=== PATIENT | female | born 1995 | race African-American/Black ===

== ENCOUNTER 2018-05-27 12:55 | Emergency (ER) | payer SELFPAY ==
--- NOTE | 2018-05-27 13:14 | PDOC ---
Attending Attestation - Resident Resident Name: Kraig Malone - HPI HPI: 05/27/18 13:43 Pt presents to the ED complaining of crampy pelvic pain similar to her chronic pelvic pain that she gets with her periods. Patient has a longstanding history of dysmenorrhea, which improved with control in the past. Denies nausea, vomiting, dysuria or fever. - Physicial Exam PE: 05/27/18 13:57 Agree with resident exam. Patient is alert and oriented and in no acute distress. Abdomen is soft, non tender, non distended without guarding or rebound. - Medical Decision Making 05/27/18 13:57 Pt presents to the ED complaining of dysuria that is similar to, but worse than , her chronic pelvic pain. Will check u a and u preg to rule out UTI or ectopic . Will check pelvic exam to evaluate for PID.
[2018-05-27] MEDS ORDERED: IBUPROFEN 600 MG TABLET (FP) PO ONE (13:26)
[2018-05-27] MEDS ORDERED: KETOROLAC TROMETHAMINE 15 MG/ML VIAL IVPUSH ONE (13:39)
[2018-05-27 13:48] VITALS: BP 127/87; PULSE 107; TEMP 98.6; BMI 31.5
--- NOTE | 2018-05-27 14:04 | PDOC ---
History of Present Illness - General Chief Complaint: Pain Stated Complaint: PELVIS PAIN Time Seen by Provider: 05/27/18 13:14 - History of Present Illness Initial Comments: 22 year old female with PMH of dysmenorrhea 05/27/18 13:20 Past History - Past Medical History Allergies/Adverse Reactions: Allergies Allergy/AdvReac Type Severity Reaction Status Date / Time bee venom protein (honey bee) Allergy Severe Swelling Verified 05/27/18 13:33 tree nut Allergy Severe Swelling Verified 05/27/18 13:30 honey Allergy Unknown Verified 05/27/18 13:33 horse dander Allergy Unknown Verified 05/27/18 13:33 pine nut Allergy Unknown Verified 05/27/18 13:33 WATER BUGS Allergy Unknown Uncoded 05/27/18 13:33 Home Medications: Ambulatory Orders Albuterol Sulfate Inhaler - [Ventolin HFA Inhaler -] 2 inh PO Q4H 05/27/18 Norgestimate-Ethinyl Estradiol [Sprintec 28 Day Tablet] 1 each PO DAILY 28 Days #1 pack 05/27/18 *DC/Admit/Observation/Transfer Diagnosis at time of Disposition: Pelvic pain - Discharge Dispostion Disposition: HOME Condition at time of disposition: Improved Decision to Admit order: No - Prescriptions Prescriptions: Norgestimate-Ethinyl Estradiol [Sprintec 28 Day Tablet] 1 each PO DAILY 28 Days #1 pack - Referrals Referrals: [facility] [Provider Group] [facility] [place] [Provider Group] - Patient Instructions Printed Discharge Instructions: DI for Endometriosis, DI for Pelvic Pain Additional Instructions: You need to have a thorough evaluation by a gyenecologist to find out what the root cause of your pain is. We believe that it could be endometriosis as we discussed or possibly due to your fibroids. Please take your control as directed and fill it at the pharmacy using the Good [facility] coupon that we helped you. Please use Motrin 600 MG every 4-6 hours as needed along with tylenol. Please return to the ED if you have any new or worsening symptoms. - Post Discharge Activity
[2018-05-27 14:10] LABS: HCG,QUALITATIVE URINE Negative
[2018-05-27] MEDS ORDERED: KETOROLAC TROMETHAMINE 15 MG/ML VIAL ONE (14:26)
[2018-05-27 14:27] LABS: URINE APPEARANCE Clear; URINE BILIRUBIN Negative (NEGATIVE); URINE COLOR Yellow; URINE GLUCOSE (UA) Negative (NEGATIVE); URINE KETONE Negative (NEGATIVE); URINE LEUK ESTERASE Negative (NEGATIVE); URINE NITRITE Negative (NEGATIVE); URINE PROTEIN Negative (NEGATIVE); URINE UROBILINOGEN 0.2 (0.2-1.0)
== END 2018-05-27 14:59 | disposition home or self-care (01) ==
LOC: FER 12:55
PROC: 3E0333Z Introduction of Anti-inflammatory into Peripheral Vein, Percutaneous Approach (ICD-10-PCS; principal; 2018-05-27)
DX: R10.2 Pelvic and perineal pain (principal)
CPT/HCPCS: 36415; 81003; 84703; 87491; 87591; 99282-25